=== PATIENT | female | born 1980 | race Caucasian/White ===

== ENCOUNTER 2016-07-14 21:00 | Emergency (ER) | payer MEDICAID ==
[~2016-07-14] VITALS: Ht 162.6 cm; Wt 77.5 kg
[~2016-07-14 21:00] MED LIST: PREN1TAB49; [UNRECOGNIZED DRUG - CODE]
[2016-07-14 21:04] VITALS: Ht 162.6 cm; Wt 77.5 kg
[2016-07-14 23:57] LABS: URINE BLOOD (Dip) POC Negative (NEGATIVE)
--- NOTE | 2016-07-15 01:18 | RADRPT ---
PROCEDURE: First trimester obstetrical ultrasound. CLINICAL INDICATION: , pelvic pain TECHNIQUE: Transabdominal and transvaginal pak scale and color Doppler ultrasound of the uterus . COMPARISON: None available FINDINGS: A single intrauterine gestation is present within the uterine fundus. No evidence of extrauterine gestation. Mean sac diameter: 1.38 cm [place]-rump length: 0.37 cm heart rate: Not detected No evidence of subchorionic hemorrhage. Normal size left ovary with intact blood flow. Residual follicle/cyst/of a corpus luteum of the rig ht ovary measuring 3.4 cm. Free fluid: None. IMPRESSION: Single probable early intrauterine gestation with an estimated gestational age of 6 weeks 0 days by ultrasound criteria. pole is identified though cardiac activity is not seen which may be due to early gestati onal status. Unless clinically contraindicated recommend correlation with quantitative beta HCG trend and repeate d pelvic ultrasound. RPTAT: AADD .Joaquin Olsen MD, MD Date Time Electronically viewed and signed by .Joaquin Olsen MD, on 07/15/2016 01:18 .B/
[2016-07-15] MEDS ORDERED: PRENAT PO (01:26)
[2016-07-15 02:08] VITALS: BP 119/61; PULSE 61; RESP 16; TEMP 98.2
--- NOTE | 2016-07-15 02:47 | ERD ---
ER Documentation Chief Complaint Date/Time DATE: 07/15/16 TIME: 02:45 Chief Complaint RLQ abd pain x 1 month HPI This is a 36-year-old female presenting to the emergency room complaining of bilateral pelvic pain for the past 2 weeks. Patient states the pain is mild to moderate in severity and is constant. Patient denies any vaginal bleeding, vaginal discharge, urinary symptoms, nausea, vomiting, diarrhea, constipation. Patient states that her last menstrual period was May. She states that she is irregular with her menstrual period. Patient states that she has been having this pelvic pain on and off for the past 2 years. She denies taking any medications for this ROS All systems reviewed and are negative except as per history of present illness. Medications Home Meds Active Scripts Multivit/Min/Fol Ac/Iron/Pren* ( S*) 1 Tab Tab, 1 TAB PO DAILY, #30 TAB Prov:AGUSTIN JON PA-C 07/15/16 Reported Medications Vits W-Ca,Fe,Fa(<1MG) () 1 Tab Tablet 11/21/09 Amoxicillin Trihydrate (Amoxicillin) 250 Mg Capsule 11/02/09 Allergies Allergies: Coded Allergies: No Known Allergy (Verified Allergy, Mild, 11/21/09) PMhx/Soc Medical and Surgical Hx: pt denies Medical Hx, pt denies Surgical Hx History of Surgery: No Hx Neurological Disorder: No Hx Respiratory Disorders: No Hx Cardiac Disorders: No Hx Psychiatric Problems: No Hx Miscellaneous Medical Probl: No Hx Alcohol Use: No Hx Substance Use: No Hx Tobacco Use: No Smoking Status: Never smoker Physical Exam Vitals Vital Signs Date Time Temp Pulse Resp B/P Pulse Ox O2 Delivery O2 Flow Rate FiO2 07/15/16 02:08 98.2 61 16 119/61 100 Room Air 07/14/16 21:04 97.8 69 20 127/69 100 Physical Exam GENERAL: well-developed/well-nourished, in no apparent distress, non-toxic appearing HENT: NC/AT, moist mucous membranes EYES: Conjunctiva normal NECK: Supple, no lymphadenopathy PULM: CTA bilaterally, no rales, rhonchi, or wheezing heard CV: Normal S1S2, RRR, good capillary refill GI: Soft, non-distended, mild tender to palpation bilateral pelvic region Normal bowel sounds, no masses or organomegaly felt on exam No gross peritonitis, no bruits Negative Rovsing, negative Klein, negative McBurney's point, Negative CVAT BACK: No masses EXT: No clubbing, cyanosis, or edema NEURO: Alert and Orientated SKIN: Intact, normal turgor PSYCH: Normal mood and mentation Results 24 hrs Laboratory Tests Test 07/14/16 23:57 Bedside Urine Blood Negative Bedside Urine Glucose (UA) Negative Bedside Urine Ketones (LAB) Negative Bedside Urine Leukocyte Esterase (L Negative Bedside Urine Nitrite (LAB) Negative Bedside Urine Protein (LAB) Negative Bedside Urine pH (LAB) 5.5 Procedures/MDM This is a 36-year-old female presenting to the emergency room complaining of pelvic pain for the past 2 weeks. On examination patient had an unremarkable abdominal exam, she just exhibited mild tenderness in the pelvic region. Patient has stable vital signs and appeared well. She is afebrile. A urine dipstick was done and was unremarkable for urinary tract infection. Patient did have a positive urine test that she was unaware about. I discussed with the patient. Patient states that she is able to follow-up with an TIN DIPPER. A pelvic ultrasound was done in the ED and radiologist stated: Single probable early intrauterine gestation with an estimated gestational age of 6 weeks 0 days by ultrasound criteria. pole is identified though cardiac activity is not seen which may be due to early gestational status. Unless clinically contraindicated recommend correlation with quantitative beta HCG trend and repeated pelvic ultrasound. I have a low suspicion for ectopic , molar , urinary tract infection, ovarian torsion, ruptured ovarian cyst. I have reassessed patient and she does not have significant pain. Patient states that she is able to follow-up with an TIN DIPPER. I discussed with her to return to the ER for any worsening signs or symptoms. She understands and agrees with this plan Departure Diagnosis: Primary Impression: Pelvic pain during Additional Impression: Pelvic pain Condition: Stable Patient Instructions: Pelvic Pain, Unknown Cause, , New Dx Referrals: [facility] [id number] [facility] [address] [place] [address] OFFICE FAX [address] [address] [address] [address] [place] [address] [address] BERRY, [facility] [address] [facility], [address], [place] [address] [facility] [address] [place] [address] [address] [address] [place] [address] [facility] [address] - ALTHEA PHIL[address]PE [address], [facility] [address] [address], [facility] [address] [facility], [facility] [address] [address] [facility]LL, [facility] [address] [place] [address] [facility] () Usted se jane hecho un examen mdico de control que le indica que no est en cristian condicin que requiera tratamiento urgente en el Departamento de Emergencia. Un estudio ms profundo y el tratamiento de saucedo condicin pueden esperar sin ningn riesgo hasta que usted sea atendida/o en el consultorio de saucedo mdico o cristian cl mitch. Es responsabilidad suya arreglar cristian scarlett para el seguimiento del micheline. MANEJO DE CONDICIONES NO URGENTES EN EL FUTURO 1) Si usted tiene un mdico de atencin primaria: Usted debera llamar a saucedo mdico de atencin primaria antes de venir al departamento de emergencia. Despus de las horas de consultorio, saucedo doctor o saucedo asociado/a est disponible por telfono. El mdico o enfermero de ja en el servicio telefnico puede asesorarle por beatriz medio para atender el problema, o micheline contrario se puede programar cristian scarlett. 2) Si usted no tiene un mdico de atencin primaria: Llame al mdico o clnica de referencia que aparece abajo lori las horas de consultorio para hacer cristian scarlett para que le vean. CLINICAS: [place] [address] [phone] [facility] [phone] [facility] [phone] [place] [address] [phone] [place] [address] [phone] [facility] [phone] [address] Additional Instructions: Visite a saucedo mdico maana para un EXAMEN.Regrese a estas instalaciones si no se mejora griffin esperbamos o griffin le dijimos. Regrese a estas instalaciones si no se mejora griffin esperbamos o griffin le dijimos. AGUSTIN JON PA-C Jul 15, 2016 02:47
== END 2016-07-15 02:09 | disposition home or self-care (01) ==
LOC: FTE 21:00
DX: O26.891 Other specified pregnancy related conditions, first trimester (principal); R10.2 Pelvic and perineal pain; Z3A.01 Less than 8 weeks gestation of pregnancy
CPT/HCPCS: 76830; 76856; 81003

== ENCOUNTER 2016-07-23 21:06 | Emergency (ER) | payer MEDICAID ==
[~2016-07-23] VITALS: Ht 152.4 cm; Wt 77.0 kg
[~2016-07-23 21:06] MED LIST changes: +PRENAT PO
[2016-07-23 21:10] VITALS: Ht 152.4 cm; Wt 77.0 kg
[2016-07-23 22:34] LABS: ADD UMIC YES; URINE BILIRUBIN (Dip) NEGATIVE (NEGATIVE); URINE BLOOD (Dip) 3+ (NEGATIVE); URINE COLOR RED (YELLOW); URINE GLUCOSE (Dip) NEGATIVE (NEGATIVE); URINE KETONES (Dip) NEGATIVE (NEGATIVE); URINE LEUKOCYTE ESTERASE (Dip) NEGATIVE (NEGATIVE); URINE NITRITE (Dip) NEGATIVE (NEGATIVE); URINE TOTAL PROTEIN (Dip) TRACE (NEGATIVE); URINE UROBILINOGEN (Dip) 0.2 E.U./dL (0.1-1.0)
[2016-07-23 22:45] LABS: BASOPHILS % 0.3 % (0.0-2.0); EOSINOPHILS # 0.3 10^3/ul (0.0-0.5); EOSINOPHILS % 2.3 % (0.0-7.0); HEMATOCRIT 38.7 % (37.0-47.0); HEMOGLOBIN 13.3 g/dl (12.0-16.0); LYMPHOCYTES # 2.7 10^3/ul (0.8-2.9); LYMPHOCYTES % 23.5 % (15.0-51.0); MEAN CORPUSCULAR HEMOGLOBIN 32.3 pg (29.0-33.0); MEAN CORPUSCULAR HGB CONC 34.2 g/dl (32.0-37.0); MEAN CORPUSCULAR VOLUME 94.3 fl (82.0-101.0); MEAN PLATELET VOLUME 9.8 fl (7.4-10.4); MONOCYTE # 0.9 10^3/ul (0.3-0.9); MONOCYTES % 8.2 % (0.0-11.0); NEUTROPHIL # 7.6 10^3/ul (1.6-7.5); NEUTROPHILS % 65.7 % (39.0-77.0); PLATELET COUNT 222 10^3/UL (140-440); RED CELL DISTRIBUTION WIDTH 13.6 % (11.5-14.5); UNCORRECTED WBC 11.6 10^3/ul (4.8-10.8); URINE RBCS >200 /HPF ([, 0]); WHITE BLOOD COUNT 11.6 10^3/ul (4.8-10.8)
[2016-07-23 22:46] LABS: BACTERIA,URINE OCCASIONAL; SQUAMOUS EPITHELIAL CELL,UR FEW
[2016-07-23 22:49] LABS: CONDITION 1
--- NOTE | 2016-07-23 23:24 | RADRPT ---
PROCEDURE: OB Ultrasound. CLINICAL INDICATION: Positive test. Vaginal bleeding. TECHNIQUE: Ultrasound of the pelvis was performed with transabdominal and transvaginal sonography in the axial and sagittal planes. COMPARISON: No prior study is available for comparison. FINDINGS: There is a single irregular intrauterine gestational sac. pole and yolk sac are not visualize d. Mean sac diameter is 1.28 cm. Menstrual age by ultrasound dates is 6 weeks 0 days. The right ovary measures 4.9 x 3.7 x 3.7 cm. The left ovary measures 3.4 x 1.0 x 1.7 cm. Color Doppler and pulsed Doppler sonography demonstrate normal flow to both ovaries. There is a benign-appearing right ovarian cyst measuring 3.5 cm in maximal diameter. There are no i nternal echoes or septations. The ovaries are otherwise normal. There is no other pelvic mass or free fluid. IMPRESSION: 1. Single irregular intrauterine gestational sac indicating probable failed as pole and yolk sac are not visualized. Follow-up ultrasound in 7 days advised. 2. Benign-appearing right ovarian cyst measuring 3.5 cm. Follow-up ultrasound in 6 weeks advised. 3. Otherwise unremarkable study. RPTAT: QQ .Altaf Gonsalves MD, Date Time Electronically viewed and signed by .Altaf Gonsalves MD, on 07/23/2016 23:24 .R/
--- NOTE | 2016-07-23 23:41 | ERD ---
ER Documentation Chief Complaint Date/Time DATE: 07/23/16 TIME: 23:36 Chief Complaint 15 wks preg & bleeding vaginally x 2 days w/ clots, consumed 2 pads x 6 hrs HPI This is a 36-year-old female stating that she is about 15 weeks presenting to the emergency department with LMP Nov complaining of vaginal bleeding for the past 2 days. Patient states that she started to have clots and she uses 2 pads every 6 hours. Patient denies any dizziness. She denies any pelvic pain at this point. She states that she has an appointment this Sunday with an [employer]. ROS All systems reviewed and are negative except as per history of present illness. Medications Home Meds Active Scripts Multivit/Min/Fol Ac/Iron/Pren* ( S*) 1 Tab Tab, 1 TAB PO DAILY, #30 TAB Prov:AGUSTIN JON PA-C 07/15/16 Reported Medications Vits W-Ca,Fe,Fa(<1MG) () 1 Tab Tablet 11/21/09 Amoxicillin Trihydrate (Amoxicillin) 250 Mg Capsule 11/02/09 Allergies Allergies: Coded Allergies: No Known Allergy (Verified Allergy, Mild, 11/21/09) PMhx/Soc History of Surgery: No Hx Neurological Disorder: No Hx Respiratory Disorders: No Hx Cardiac Disorders: No Hx Psychiatric Problems: No Hx Miscellaneous Medical Probl: No Hx Alcohol Use: No Hx Substance Use: No Hx Tobacco Use: No Smoking Status: Never smoker Physical Exam Vitals Vital Signs Date Time Temp Pulse Resp B/P Pulse Ox O2 Delivery O2 Flow Rate FiO2 07/23/16 21:10 98.8 64 18 128/61 100 Physical Exam GENERAL: well-developed/well-nourished, in no apparent distress, non-toxic appearing HENT: NC/AT, moist mucous membranes EYES: Conjunctiva normal NECK: Supple, no lymphadenopathy PULM: CTA bilaterally, no rales, rhonchi, or wheezing heard CV: Normal S1S2, RRR, good capillary refill GI: Soft, non-distended, mild tender to palpation pelvic Normal bowel sounds, no masses or organomegaly felt on exam No gross peritonitis, no bruits Negative Rovsing, negative Klein, negative McBurney's point, Negative CVAT BACK: No masses EXT: No clubbing, cyanosis, or edema NEURO: Alert and Orientated SKIN: Intact, normal turgor PSYCH: Normal mood and mentation Result Diagram: 07/23/16 2205 Results 24 hrs Laboratory Tests Test 07/23/16 22:05 Basophils # 0.010^3/ul Basophils % 0.3% Beta HCG, Quantitative 3975.4mIU/ml Eosinophils # 0.310^3/ul Eosinophils % 2.3% Hematocrit 38.7% Hemoglobin 13.3g/dl Lymphocytes # 2.710^3/ul Lymphocytes % 23.5% Mean Corpuscular Hemoglobin 32.3pg Mean Corpuscular Hemoglobin Concent 34.2g/dl Mean Corpuscular Volume 94.3fl Mean Platelet Volume 9.8fl Monocytes # 0.910^3/ul Monocytes % 8.2% Neutrophils # 7.610^3/ul Neutrophils % 65.7% Nucleated Red Blood Cells # 0.010^3/ul Nucleated Red Blood Cells % 0.0/100WBC Platelet Count 19696^3/UL Red Blood Count 4.1010^6/ul Red Cell Distribution Width 13.6% Urine Bacteria OCCASIONAL Urine Bilirubin NEGATIVE Urine Clarity SLIGHTLY CLOUDY Urine Color RED Urine Glucose NEGATIVE% Urine Hemoglobin 3+ Urine Ketones NEGATIVE Urine Leukocyte Esterase NEGATIVE Urine Microscopic RBC >200/HPF Urine Microscopic WBC 0-2/HPF Urine Nitrite NEGATIVE Urine Specific [place] 1.015 Urine Squamous Epithelial Cells FEW Urine Total Protein TRACE Urine Urobilinogen 0.2 E.U./dL Urine pH 7.0 White Blood Count 11.610^3/ul Procedures/MDM This is a 36-year-old female stating that she is about 15 weeks presenting to the emergency department with LMP May 27 complaining of vaginal bleeding for the past 2 days, Patient states that she started to have clots and she uses 2 pads every 6 hours. I reviewed patient's past chart. Patient was seen here on July 15 in which she found out she was that day. This is likely due to a failed . There was no evidence of ectopic , molar , anemia. Urinalysis did not show any evidence of a urinary tract infection. Lab work was done, patient had mildly elevated white blood cell count might likely due to stress reaction. She did not have any evidence of anemia. Beta hC OB ultrasound: 1. Single irregular intrauterine gestational sac indicating probable failed as pole and yolk sac are not visualized. Follow-up ultrasound in 7 days advised. 2. Benign-appearing right ovarian cyst measuring 3.5 cm. Follow-up ultrasound in 6 weeks advised. 3. Otherwise unremarkable study. I have discussed with patient that she should still continue to see her [employer] this Sunday and likely she will will need a repeat ultrasound and beta-hcg in 7 days . I have given patient precautions to return to the ER for any worsening signs or symptoms. Patient understands and agrees with this plan Departure Diagnosis: Primary Impression: Vaginal bleeding in patient at less than 20 weeks ges... Condition: Fair Patient Instructions: Possible Miscarriage (Threatened ) Referrals: NO PRIMARY,CARE PHYSICIAN (PCP) saucedo doctora Additional Instructions: El ultrasonido indica que puede denise fallado la pregancia y necesitar un ultrasonido de repeticin y un trabajo de laboratorio en 7 pink. Por favor, siga con saucedo obstetricia. Lleve todos los documentos consigo Regrese a estas instalaciones si no se mejora griffin esperbamos o griffin le dijimos. AGUSTIN JON PA-C Jul 23, 2016 23:40
[2016-07-23 23:44] VITALS: BP 116/70; PULSE 62; RESP 17; TEMP 98.9
== END 2016-07-23 23:45 | disposition home or self-care (01) ==
LOC: FTE 21:06
DX: O20.9 Hemorrhage in early pregnancy, unspecified (principal); R10.2 Pelvic and perineal pain; Z3A.15 15 weeks gestation of pregnancy
CPT/HCPCS: 36415; 76801; 76817; 81001; 84702; 85025; 86900; 86901; Z7502; 81003

== ENCOUNTER 2017-08-11 02:44 | Emergency (ER) | END 2017-08-11 07:54 | disposition home or self-care (01) ==

== ENCOUNTER 2017-12-05 08:28 | Emergency (ER) | END 2017-12-05 13:30 | disposition home or self-care (01) ==

== ENCOUNTER 2018-07-18 17:32 | Observation (INO) | payer MEDICAID ==
[~2018-07-18] VITALS: Ht 157.5 cm; Wt 91.0 kg
[~2018-07-18 17:32] MED LIST changes: +METF500T PO; -PREN1TAB49; -[UNRECOGNIZED DRUG - CODE]
[2018-07-18] MEDS ORDERED: LACTATED RINGER'S 1,000 ML IV PRN (18:53)
[2018-07-18] MEDS ORDERED: LACTATED RINGER'S 1,000 ML IV SCH (18:53)
[2018-07-18] MEDS ORDERED: DEXTROSE 5%-LR 1,000 ML IV PRN (19:00)
[2018-07-18] MEDS ORDERED: BUTORPHANOL 1 MG INJ IV PRN (19:00)
[2018-07-18] MEDS ORDERED: IBUPROFEN 600 MG TAB PO PRN (19:00)
[2018-07-18] MEDS ORDERED: METHYLERGONOVINE 0.2 MG INJ IM PRN (19:00)
[2018-07-18] MEDS ORDERED: MISOPROSTOL 200 MCG TAB PR PRN (19:00)
[2018-07-18] MEDS ORDERED: OXYTOCIN 30 UNITS/LR 500 ML IV PRN (19:00)
[2018-07-18] MEDS ORDERED: OXYTOCIN 30 UNITS/LR 500 ML IV SCH ×3 (19:00)
[2018-07-18] MEDS ORDERED: LIDOCAINE 1% (MPF) 30 ML INJ INJ PRN (19:00)
[2018-07-18] MEDS ORDERED: CARBOPROST 250 MCG INJ IM PRN (19:00)
[2018-07-18] MEDS ORDERED: MISOPROSTOL 50 MCG CAPSULE VAG ONE (19:00)
[2018-07-18] MEDS ORDERED: BUTORPHANOL 2 MG INJ IV PRN (19:00)
[2018-07-18 20:33] VITALS: Ht 157.5 cm; Wt 91.0 kg
== END 2018-07-18 21:30 | disposition left against medical advice (07) ==
LOC: L-D 17:32 → INTOOBSV 17:32 → L-D 18:18 → EDSTATUS 07-22 17:31
PROVIDERS: ADMIT Obstetrics & Gynecology; ATTEND Obstetrics & Gynecology
DX: O09.523 Supervision of elderly multigravida, third trimester (principal); Z3A.39 39 weeks gestation of pregnancy; Z53.21 Procedure and treatment not carried out due to patient leaving prior to being seen by health care provider
CPT/HCPCS: 76815; J7120; Z7500; 99217; G0378

== ENCOUNTER 2018-07-21 11:14 | Inpatient (IN) | payer MEDICAID ==
[~2018-07-21] VITALS: Ht 157.5 cm; Wt 91.0 kg
[2018-07-21 12:11] VITALS: BP 125/78; PULSE 72; RESP 20; Ht 157.5 cm; Wt 91.0 kg
--- NOTE | 2018-07-21 12:51 | TRIAGE ---
OB Triage Datetime Report Generated by CPN: 07/21/2018 12:51 Datetime: 07/21/2018 12:14 Maternal Assessment Level of Consciousness: Fully Conscious DTR's/Clonus: DTRs 2+; No Clonus Headache: Denies Blurred Vision: No Respiratory Effort: Unlabored; Regular Rhythm; Equal Expansion Breath Sounds, Left: Clear and Equal Breath Sounds, Right: Clear and Equal Nausea/Vomiting: Denies RUQ Epigastric Pain: Denies Facial Edema: None Temperature Route: Axillary Fall Risk Assessment History of Falling: (0) No Secondary Diagnosis: (0) No Ambulatory Aid: (0) Bedrest/Nurse Assist IV Therapy: (0) No Gait: (0) Normal/Bedrest/Immobile Mental Status: (0) Oriented to Own Ability Fall Score: 0 Fall Risk Score Definition: No Risk: No action required Datetime: 07/21/2018 12:01 Maternal Assessment Level of Consciousness: Fully Conscious DTR's/Clonus: DTRs 2+ Headache: Denies Blurred Vision: No Nausea/Vomiting: Denies RUQ Epigastric Pain: Denies Facial Edema: None Labor Evaluation Frequency: irreg Monitor Mode: External Quality: Mild Pattern: Normal: <= 5 Contractions in 10 Minutes Resting Tone [place]: Relaxed Heart Rate FHR Baseline Rate: 150 Monitor Mode: External US FHR Baseline Changes: No Baseline Change Variability: Moderate 6-25 bpm Accelerations: 15X15 Decelerations: None Category: Category I Pain Assessment Pain Scale: 6 Pain Presence: Intermittent Pain Type: Cramping Pain Location: Abdomen Vaginal Exam Dilatation (cms): 1.0 Effacement (%): 0 Station: -3 Exam By: renny rock Membrane Status: Intact Vaginal Bleeding: None Cervix, Consistency: Soft Cervix, Position: Posterior Datetime: 07/21/2018 11:10 Time of Arrival: 07/21/2018 11:10 EGA: 39.6 Arrived By: Ambulatory Arrived From: Home Chief Complaint: decreased movement Movement: Decreased Contractions: Irregular Vaginal Bleeding: None Patient Complaints: Other Provider Notified: bob Initial Plan: efm,call dr rojas Datetime: 07/18/2018 21:15 Comments: patient disconnected from external monitoring and up dressing Datetime: 07/18/2018 21:00 Labor Evaluation Frequency: x3 Monitor Mode: External Pattern: Normal: <= 5 Contractions in 10 Minutes Heart Rate FHR Baseline Rate: 135 Monitor Mode: External US FHR Baseline Changes: No Baseline Change Variability: Moderate 6-25 bpm Accelerations: 15X15 Category: Category I Datetime: 07/18/2018 20:00 Labor Evaluation Frequency: occasional Monitor Mode: External Pattern: Normal: <= 5 Contractions in 10 Minutes Heart Rate FHR Baseline Rate: 135 Monitor Mode: External US FHR Baseline Changes: No Baseline Change Variability: Moderate 6-25 bpm Datetime: 07/18/2018 19:47 Stage of : Labor Datetime: 07/18/2018 19:27 Assessment Type: Admission Assessment Vaginal Bleeding: None Maternal Assessment Level of Consciousness: Fully Conscious Headache: Denies Blurred Vision: No Respiratory Effort: Unlabored; Regular Rhythm; Equal Expansion Nausea/Vomiting: Denies RUQ Epigastric Pain: Denies Facial Edema: None Fall Risk Assessment History of Falling: (0) No Secondary Diagnosis: (0) No Ambulatory Aid: (0) Bedrest/Nurse Assist IV Therapy: (0) No Gait: (0) Normal/Bedrest/Immobile Mental Status: (0) Oriented to Own Ability Fall Score: 0 Fall Risk Score Definition: No Risk: No action required Datetime: 07/18/2018 19:26 Vaginal Bleeding: None Maternal Assessment Level of Consciousness: Fully Conscious Headache: Denies Blurred Vision: No Respiratory Effort: Unlabored; Regular Rhythm; Equal Expansion Nausea/Vomiting: Denies RUQ Epigastric Pain: Denies Facial Edema: None Fall Risk Assessment History of Falling: (0) No Secondary Diagnosis: (0) No Ambulatory Aid: (0) Bedrest/Nurse Assist Gait: (0) Normal/Bedrest/Immobile Mental Status: (0) Oriented to Own Ability Datetime: 07/18/2018 19:25 Time of Arrival: 07/18/2018 18:47 EGA: 39.3 Arrived By: Ambulatory Arrived From: Home Datetime: 07/07/2018 08:45 Stage of : OB Triage Maternal Assessment Level of Consciousness: Fully Conscious Labor Evaluation Frequency: OCCASIONAL Monitor Mode: External Duration (sec)2399: 60-140 Quality: Mild Resting Tone [place]: Relaxed Heart Rate FHR Baseline Rate: 145 Monitor Mode: External US Variability: Moderate 6-25 bpm Accelerations: 15X15 Decelerations: None Category: Category I Pain Assessment Pain Scale: 0 Pain Goal: 3 Membrane Status: Intact Vaginal Bleeding: None Datetime: 07/07/2018 07:48 Fall Score: 0 Fall Risk Score Definition: No Risk: No action required Datetime: 07/07/2018 07:47 EGA: 37.6
--- NOTE | 2018-07-21 12:58 | PREOPHP ---
DATE OF ADMISSION: 07/21/2018 HISTORY OF PRESENT ILLNESS: Ms. Aide Mora is a 38-year-old 4, para 2, EDC 07/22 intrauterine at 39 weeks and 6 days gestational age, presented to triage complaining of uterine contractions with decreased movement since last night. She currently is a GDM A2. She denies any vaginal discharge or bleeding. Her care took place at [facility]. MEDICAL HISTORY: GDM A2. MEDICATIONS: 1. vitamins. 2. Metformin. PAST SURGICAL HISTORY: None. OBSTETRIC HISTORY: x2 vaginal deliveries, x1 missed AB. GYNECOLOGIC HISTORY: 12, regular 3 to 4 days. Denies any sexually transmitted disease, sexually act akbar with 1 partner. SOCIAL HISTORY: Denies any smoking, drugs or alcohol. FAMILY HISTORY: None. REVIEW OF SYSTEMS: All within normal except history of present illness. PHYSICAL EXAMINATION: HEENT: Within normal. LUNGS: CTA bilateral. CARDIOVASCULAR: S1, S2, regular rhythm. ABDOMEN: Gravid, nontender. Negative CVA bilateral. EXTREMITIES: No calf tenderness. PELVIC: Vaginal exam short and closed. heart tracing category 1. Tea regular contractions. Estimated weight as of 07/18/2018, approximately 3700 grams. ASSESSMENT: Intrauterine at 39 weeks and 6 days gestational age, advanced maternal age. G DM A2 decreased movement. Suspect early labor. PLAN: Admit patient for Pitocin induction/augmentation. Risks, benefits and alternatives explained, including but not limited to increased risk of shoulder dystocia. Dictated By: OTIS ROBLEDO/AAMIR Conf#: [id number] DID#: [id number]
[2018-07-21] MEDS ORDERED: OXYTOCIN 30 UNITS/LR 500 ML IV PRN (14:00)
[2018-07-21] MEDS ORDERED: IBUPROFEN 600 MG TAB PO PRN (14:00)
[2018-07-21] MEDS ORDERED: LIDOCAINE 1% (MPF) 30 ML INJ INJ PRN (14:00)
[2018-07-21] MEDS ORDERED: OXYTOCIN 30 UNITS/LR 500 ML IV SCH ×3 (14:00)
[2018-07-21] MEDS ORDERED: METHYLERGONOVINE 0.2 MG INJ IM PRN (14:00)
[2018-07-21] MEDS ORDERED: MISOPROSTOL 200 MCG TAB PR PRN (14:00)
[2018-07-21] MEDS ORDERED: CARBOPROST 250 MCG INJ IM PRN (14:00)
[2018-07-21] MEDS ORDERED: BUTORPHANOL 1 MG INJ IV PRN (14:00)
[2018-07-21] MEDS: LACTATED RINGER'S 1,000 ML IV SCH ×2 (14:44→21:29)
[2018-07-21] MEDS: MISOPROSTOL 50 MCG CAPSULE PO SCH (21:28)
[2018-07-22] MEDS: MISOPROSTOL 50 MCG CAPSULE PO SCH ×3 (01:33→09:37)
[2018-07-22] MEDS ORDERED: MINERAL OIL LIGHT 10 ML VIAL TOP ONE (03:00)
[2018-07-22] MEDS: LACTATED RINGER'S 1,000 ML IV SCH ×2 (05:05→13:02)
[2018-07-22] MEDS ORDERED: OXYTOCIN 30 UNITS/LR 500 ML BAG IV ONE (07:00)
--- NOTE | 2018-07-22 09:05 | QN ---
Documentation Comment progress note patient seen and evaluated no complaints vs stable afebrile ab gravid nt extremity no edema no calf tenderness fhr cat 1 toco irregular Intrauterine at 40 wks gestational age, advanced maternal age. GDM A2 decreased movement. currently on cytotec for cervical ripening p/ continue present management OTIS HERRERA MD Jul 22, 2018 09:05
[2018-07-22] MEDS: BUTORPHANOL 2 MG INJ IV PRN ×2 (11:01→13:03)
[2018-07-22] MEDS ORDERED: DEXTROSE 5%-LR 1,000 ML IV SCH (13:05)
[2018-07-22] MEDS ORDERED: MINERAL OIL LIGHT 10 ML VIAL ONE (13:25)
[2018-07-22] MEDS ORDERED: CEFAZOLIN 2 GM/50 ML (PMX) 50 ML IVPB SCH (14:30)
[2018-07-22] MEDS ORDERED: OXYTOCIN 10 UNIT INJ ONE (14:32)
[2018-07-22] MEDS ORDERED: FENTAnyl 50 MCG/ML VIAL ONE (14:32)
--- NOTE | 2018-07-22 14:39 | PREAC ---
Date/Time of Note Date/Time of Note DATE: 07/22/18 TIME: 14:37 Anesthesia Eval and Record Evaluation Time Pre-Procedure Interview DATE: 07/22/18 TIME: 14:15 Age 38 Sex female NPO: 8 hrs Preoperative diagnosis Distress Planned procedure Emergency Past Medical History Past Medical History: Includes : : (4), Para: (2), Gestational age: (40) Surgery & Anesthesia Issues No known issue Meds Anticoagulation: No Beta Kate within 24 hr: No Reason Beta Kate not given: Pt. not on B-Kate Active Scripts Multivit/Min/Fol Ac/Iron/Pren* ( S*) 1 Tab Tab, 1 TAB PO DAILY, #30 TAB Prov:AGUSTIN JON PA-C 07/15/16 Reported Medications Metformin Hcl (Glucophage) 500 Mg Tablet, 500 MG PO WITH DINNER, #30 TAB 07/07/18 Current Medications Lactated Ringer's 1,000 ml @ 125 mls/hr Q8H IV Last administered on 07/22/18at 13:02; Admin Dose 125 MLS/HR; Start 07/21/18 at 14:00 Butorphanol Tartrate (Stadol) 1 mg Q2H PRN IV PAIN; Start 07/21/18 at 14:00 Butorphanol Tartrate (Stadol) 2 mg Q2H PRN IV PAIN Last administered on 07/22/18at 13:03; Admin Dose 2 MG; Start 07/21/18 at 14:00 Lidocaine (Xylocaine 1% (Mpf)) 30 ml ONCE PRN INJ EPISIOTOMY; Start 07/21/18 at 14:00 Oxytocin/Lactated Ringer's 500 ml @ 500 mls/hr ONCE POST IV ; Start at 14:00 Oxytocin/Lactated Ringer's 500 ml @ 125 mls/hr POST IV ; Start 07/21/18 at 14:00 Ibuprofen (Motrin) 600 mg ONCE PRN PO PAIN LEVEL 1-5; Start 07/21/18 at 14:00 Oxytocin/Lactated Ringer's 500 ml @ 0 mls/hr ONCE PRN IV VAGINAL BLEEDING; Start 07/21/18 at 14:00 Methylergonovine Maleate (Methergine) 0.2 mg ONCE PRN IM VAGINAL BLEEDING; Start 07/21/18 at 14:00 Carboprost Tromethamine (Hemabate) 250 mcg ONCE PRN IM VAGINAL BLEEDING; Start 07/21/18 at 14:00 Misoprostol (Cytotec) 1,000 mcg ONCE PRN TX VAGINAL BLEEDING; Start 07/21/18 at 14:00 Misoprostol (Cytotec 50 Mcg Capsule) 50 mcg Q4 PO Last administered on 07/22/18at 09:37; Admin Dose 50 MCG; Start 07/21/18 at 21:00 Dextrose/Lactated Ringer's 1,000 ml @ 125 mls/hr Q8H IV ; Start 07/22/18 at 13:05 Cefazolin Sodium/ Dextrose 50 ml @ 100 mls/hr ONCE IVPB ; Start 07/22/18 at 14:30 Meds reviewed: Yes Allergies Coded Allergies: No Known Allergy (Verified , 12/05/17) Allergies Reviewed: Yes Labs/Studies Labs Reviewed: Reviewed by anesthesiologist Result Diagram: 07/21/18 1408 test: Positive Studies: ECG (n/a), CXR (n/a) Pre-procedure Exam Last vitals Vital Signs Date Temp Pulse Resp B/P (MAP) Pulse Ox O2 O2 Flow FiO2 Time Delivery Rate 07/21/18 98.4 72 20 125/78 Room Air 12:11 (94) Airway: Adequate mouth opening, Adequate thyromental dist Mallampati: Mallampati II Teeth: Normal Lung: Normal Heart: Normal ASA Physical Status ASA physical status: 2 Emergency: E Planned Anesthetic General/MAC: ETT Neuraxial: Spinal Planned Pain Management Sub-arachniod narcotics, Parenteral pain med Pre-operative Attestations Prior to commencing anesthesia and surgery, the patient was re-evaluated, there was verification of: *The patient's identity *The results of appropriate recent lab work and preoperative vital signs *The above evaluation not changing prior to induction *Anesthetic plan, risk benefits, alternative and complications discussed with patient/family; questions answered; patient/family understands, accepts and wishes to proceed. MATILDE MCKEON MD Jul 22, 2018 14:39
[2018-07-22] MEDS ORDERED: PROPOFOL 20 ML ONE (14:43)
[2018-07-22] MEDS ORDERED: ROCURONIUM 50 MG INJ ONE (14:43)
[2018-07-22] MEDS ORDERED: SUCCINYLCHOLINE CHLORIDE 100 MG/5 ML SYG IV ONE (14:43)
[2018-07-22] MEDS ORDERED: ONDANSETRON 4 MG INJ ONE (14:44)
[2018-07-22] MEDS ORDERED: KETOROLAC 30 MG INJ ONE (14:44)
[2018-07-22] MEDS ORDERED: DEXAMETHASONE 4 MG/ML 1 ML INJ ONE (14:44)
[2018-07-22] MEDS ORDERED: METOCLOPRAMIDE 10 MG INJ ONE (14:44)
[2018-07-22] MEDS ORDERED: ROPIVACAINE 0.5 % 30 ML VIAL ONE (14:48)
[2018-07-22] MEDS ORDERED: METOCLOPRAMIDE 10 MG INJ IV PRN ×2 (15:00→19:00)
[2018-07-22] MEDS ORDERED: HYDROmorphONE 1 MG/5 ML IV SYRINGE IV PRN ×6 (15:00→19:00)
[2018-07-22] MEDS ORDERED: OXYCODONE/ACETAMINOPHEN (5/325) TAB PO PRN ×5 (15:00→19:00)
[2018-07-22] MEDS ORDERED: DIPHENHYDRAMINE 50 MG INJ IV PRN ×2 (15:00→19:00)
[2018-07-22] MEDS ORDERED: ONDANSETRON 4 MG INJ IV PRN ×2 (15:00→19:00)
[2018-07-22] MEDS ORDERED: FENTAnyl 50 MCG/ML VIAL IV PRN ×6 (15:00→19:00)
[2018-07-22] MEDS ORDERED: MEPERIDINE 25 MG INJ IV PRN ×2 (15:00→19:00)
[2018-07-22] MEDS ORDERED: OXYTOCIN 30 UNITS/LR 500 ML IV SCH (15:06)
--- NOTE | 2018-07-22 15:06 | OPPN ---
Date/Time of Note Date/Time of Note DATE: 07/22/18 TIME: 15:03 Operative Report Planned Procedure Procedure date Jul 22, 2018 Procedure(s) primary low transverse CD Performed by see signature line Crabber: SIMRAN ROLLE M.D. 2nd Crabber none Anesthesiologist: MATILDE MCKEON MD Pre-procedure diagnosis iup at term, in labor, gdma2, distress, failed vacuum (patient give oral consent) [id number] Anesthesia Type: Xvrvq9k general Post-Procedure Post-procedure diagnosis same Findings a viable male 8/9 weight 4,270 grams, normal uterus tubes and ovaries Estimated Blood Loss: 500 - 600 mls (600) Specimen(s) none Grafts/Implant(s) none Complication(s) none OTIS HERRERA MD Jul 22, 2018 15:06
[2018-07-22] MEDS ORDERED: METHYLERGONOVINE 0.2 MG INJ IM PRN (15:30)
[2018-07-22] MEDS ORDERED: NACL 0.9% 3 ML SYG IV SCH (15:30)
[2018-07-22] MEDS ORDERED: MISOPROSTOL 200 MCG TAB PR PRN (15:30)
[2018-07-22] MEDS ORDERED: OXYTOCIN 30 UNITS/LR 500 ML IV PRN (15:30)
[2018-07-22] MEDS ORDERED: CARBOPROST 250 MCG INJ IM PRN (15:30)
[2018-07-22] MEDS ORDERED: LANOLIN HPA 1 PKT TOP PRN (15:30)
[2018-07-22] MEDS: CEFAZOLIN 2 GM/50 ML (PMX) 50 ML IVPB SCH ×2 (15:54→23:53)
[2018-07-22 18:00] VITALS: BP 120/57; PULSE 66; RESP 19
[2018-07-22] MEDS: IBUPROFEN 600 MG TAB PO SCH (18:00)
--- NOTE | 2018-07-22 18:21 | PAC ---
Date/Time of Note Date/Time of Note DATE: 07/22/18 TIME: 18:21 Post-Anesthesia Notes Post-Anesthesia Note Last documented vital signs Vital Signs Date Temp Pulse Resp B/P (MAP) Pulse Ox O2 O2 Flow FiO2 Time Delivery Rate 07/21/18 98.4 72 20 125/78 98 Room Air 18:11 (94) Activity: WNL Respiratory function: WNL Cardiovascular function: WNL Mental status: Baseline Pain reasonably controlled: Yes Hydration appropriate: Yes Nausea/Vomiting absent: Yes MATILDE MCKEON MD Jul 22, 2018 18:21
[2018-07-22 18:30] VITALS: BP 115/68; PULSE 68; RESP 18
[2018-07-22] MEDS ORDERED: EPHEDrine SULFATE 50 MG/5 ML SYG IV PRN (19:00)
[2018-07-22] MEDS ORDERED: KETOROLAC 30 MG INJ IV PRN (19:00)
[2018-07-22 20:00] VITALS: BP 115/72; PULSE 66; RESP 18
[2018-07-23] VITALS: BP 99/84; PULSE 71
[2018-07-23] MEDS ORDERED: HYDROmorphONE 0.5 MG/0.5 ML SYG ONE (00:44)
[2018-07-23] MEDS: HYDROmorphONE 0.5 MG/0.5 ML SYG IV PRN ×2 (00:56→08:23)
[2018-07-23 03:50] VITALS: BP 97/60; PULSE 70; RESP 18
[2018-07-23] MEDS: KETOROLAC 30 MG INJ IV PRN ×2 (05:20→11:51)
[2018-07-23] MEDS: LACTATED RINGER'S 1,000 ML IV SCH (05:20)
[2018-07-23] MEDS: CEFAZOLIN 2 GM/50 ML (PMX) 50 ML IVPB SCH (06:58)
[2018-07-23 08:00] VITALS: BP 98/56; PULSE 71; RESP 17
--- NOTE | 2018-07-23 09:54 | NSTRPT ---
NST Information Datetime Report Generated by CPN: 07/23/2018 09:54 Datetime: 07/19/2018 09:30 NST Information EGA: 39.4 NST Duration (Min): 39 Datetime: 07/17/2018 11:07 NST Information EGA: 39.2 NST Duration (Min): 27 Electronically Signed By E-Signature: with User ID: [id number] Datetime: 07/12/2018 10:32 NST Information EGA: 38.4 NST Duration (Min): 22 Datetime: 07/10/2018 10:51 NST Information EGA: 38.2 NST Duration (Min): 26 Datetime: 07/05/2018 09:58 NST Information EGA: 37.4 NST Duration (Min): 93 Datetime: 07/03/2018 10:24 NST Information EGA: 37.2 NST Duration (Min): 45 Datetime: 06/28/2018 10:08 NST Information EGA: 36.4 NST Duration (Min): 24 Datetime: 06/25/2018 09:49 NST Information EGA: 36.1 NST Duration (Min): 34 Datetime: 06/21/2018 09:28 NST Information EGA: 35.4 NST Duration (Min): 44 Datetime: 06/18/2018 09:10 NST Information EGA: 35.1 NST Duration (Min): 21 Datetime: 06/14/2018 09:25 NST Information EGA: 34.4 NST Duration (Min): 33 Datetime: 06/11/2018 09:28 NST Information EGA: 34.1 Datetime: 06/11/2018 09:21 NST Duration (Min): 23
[2018-07-23 12:00] VITALS: BP 92/50; PULSE 73; RESP 17
--- NOTE | 2018-07-23 12:09 | OPR ---
DATE OF OPERATION: 07/22/2018 PREOPERATIVE DIAGNOSES: 1. Intrauterine at 40 weeks' gestational age, GDM A2. 2. Advanced maternal age, category 2/category 3 tracing/ distress. POSTOPERATIVE DIAGNOSIS: 1. Intrauterine at 40 weeks' gestational age, GDM A2. 2. Advanced maternal age, category 2/category 3 tracing/ distress. PROCEDURE: Failed vacuum assisted vaginal delivery. Primary low transverse delivery via Pfannenstiel incision. SURGEON: Marvin Herrera MD FOOD SAFETY FIELD SPECIALIST: Rio Guy MD ANESTHESIA: General. COMPLICATIONS: None. ESTIMATED BLOOD LOSS: 600 mL. FINDINGS: A viable male, 8 and 9 respectively at 1 and 5 minutes, weight 4270 grams. DESCRIPTION OF PROCEDURE: The patient was taken to the operating room where she was given the risks, benefits and alternatives for a vacuum assisted vaginal delivery. After verbal consent, a vacuum was applied to the head and there was a 3 pop-offs. At this point, the patient was consented for a primary stat . The patient was prepared and draped in a normal sterile fashion in a dorsal supine position with a leftward tilt. General anesthesia was obtained without difficulty.obtained. An incision was then made with a scalpel and carried to the underlying of the fascia. The fascia was incised in the midline and incision was extended laterally. The superior aspect of the fascia was grasped with curved clamps, elevated and the underlying rectus muscles dissected off bluntly. Attention was then turned to the inferior aspect of the incision which in similar fashion was grasped, tented up with curved clamps and the rectus muscles dissected off bluntly. The rectus muscles were then in midline. The peritoneum was then entered bluntly. The peritoneum was then extended superiorly and inferiorly with visualization of the bladder. At this point, the bladder blade was inserted and the lower uterine segment was incised in transverse fashion with the scalpel. The uterine incision was extended laterally. The bladder blade was removed and the infant's head was delivered atraumatically. The nose and mouth were suctioned and cord clamped and cut. The infant was handed off to the waiting fish bait picker/NICU team. The placenta was removed. The uterus extracted of all clots and debris. The uterine incision was repaired with 1-0 chromic in a running locked fashion. A second layer of same suture was used for imbrication obtaining excellent hemostasis. At this point, the uterus was returned to the abdomen. The gutters were cleared of all clots, and the peritoneum and rectus abdominis muscles were reapproximated with 3-0 Vicryl. The fascia was reapproximated with 0 Vicryl in running fashion. The subcutaneous tissue was reapproximated with 2-0 plain gut in a running fashion. The skin was closed with ronan. At this point, the patient was placed in a dorsal supine position and a first degree vaginal laceration was repaired with 2-0 chromic with good hemostasis noted. The patient tolerated the procedure well. All counts were correct. The patient was taken to the PACU, extubated and in stable condition. Dictated By: MARVIN ROBLEDO/AAMIR Conf#: [id number] DID#: [id number] CC: MARVIN HERRERA MD;*EndCC* MTDD
[2018-07-23] MEDS: OXYCODONE/ACETAMINOPHEN (5/325) TAB PO PRN ×2 (14:56→18:45)
--- NOTE | 2018-07-23 16:57 | QN ---
Documentation Comment progress note pod 1 patient seen and evaluated no complaints vs stable afebrile ab dressing clean dry no distention extremity no edema no calf tenderss a/ sp cd pod 1 stable afebrile p/ iron supplement repeat cbc in am encourage ambulation OTIS HERRERA MD Jul 23, 2018 16:57
[2018-07-23] MEDS: IBUPROFEN 600 MG TAB PO SCH ×3 (17:18→23:30)
[2018-07-23 20:15] VITALS: BP 97/59; PULSE 64; RESP 18
[2018-07-23] MEDS: FERROUS SULFATE (EC) 325 MG TAB PO SCH (20:56)
[2018-07-24 04:10] VITALS: BP 94/64; PULSE 61; RESP 18
[2018-07-24] MEDS: IBUPROFEN 600 MG TAB PO SCH ×3 (05:56→17:35)
[2018-07-24 08:00] VITALS: BP 99/58; PULSE 66; RESP 18
[2018-07-24] MEDS: FERROUS SULFATE (EC) 325 MG TAB PO SCH ×2 (09:14→20:16)
--- NOTE | 2018-07-24 12:41 | PD.PPDC ---
FIRE CODE INSPECTOR Discharge Instruction Condition [id number] Patient Condition: Nnntd0r Good Diet Cbqsf2Km Diet: Ubswr8v Resume Regular Diet Activity/Restrictions [id number] Activity: Rewsk3c Normal Activity May Shower Ulwiw6Ac Restrictions: Udfkj9m No Exercising No Lifting No Driving No Sexual Activity Nothing in the Vagina No [place] No Tampons, douche Follow-up Follow-up with Physician: 3, Day/Days Provider Information: to remove ronan Return to clinic for Crfvg3Sl GEAR FINISHER Instructions: Eidbi5g Fever greater than 101 Chills Worsening abdominal pain Excessive Vaginal Bleeding More than 2 pads per hour Unable to tolerate diet Qygjf5Db OB Instructions: Hsfqr7y Breast Tenderness Depression Blurried Vision Headache Eerqw3Eu Surgical Instructions: Jrwom9b Incisional Drainage Incisional Redness OTIS HERRERA MD Jul 24, 2018 12:41
[2018-07-24] MEDS: OXYCODONE/ACETAMINOPHEN (5/325) TAB PO PRN ×2 (13:07→20:49)
--- NOTE | 2018-07-24 15:19 | DS ---
DATE OF ADMISSION: 07/21/2018 DATE OF DISCHARGE: 07/25/2018 PRIMARY DIAGNOSIS: Intrauterine at 40 weeks' gestational age, GDM A2. Advanced maternal a ge, category 2/category 3 tracing/ distress. PROCEDURE: Failed vacuum assisted vaginal delivery with a primary low transverse delivery. CONDITION ON DISCHARGE: Stable. ACTIVITY: None per vagina, no lifting x6 weeks. DIET: Regular. MEDICATIONS ON DISCHARGE: 1. Motrin. 2. Iron. DISCHARGE SUMMARY: Ms. Aide Mora underwent a primary delivery on 07/22/2018. She had a viable male, 8 and 9 respectively at 1 and 5 minutes, weight 4270 grams. She had an uneventful postop day 1 and 2. She was discharged on postop day 3. Incision is clean, dry, intact. She is ambulating, tolerating diet, positive flatulence, positive bowel movement. She will follow u p in the clinic in 3 to 4 days to remove her ronan. Dictated By: OTIS ROBLEDO/AAMIR Conf#: [id number] DID#: [id number]
[2018-07-24 16:00] VITALS: BP 92/56; PULSE 62; RESP 18
[2018-07-24 20:00] VITALS: BP 109/69; PULSE 72; RESP 18
[2018-07-24] MEDS ORDERED: DIPHENHYDRAMINE 25 MG CAP PO ONE (23:00)
[2018-07-25] MEDS: IBUPROFEN 600 MG TAB PO SCH ×3 (00:49→11:29)
[2018-07-25] MEDS: OXYCODONE/ACETAMINOPHEN (5/325) TAB PO PRN ×3 (01:02→10:12)
[2018-07-25 04:00] VITALS: BP 100/58; PULSE 70
[2018-07-25 08:00] VITALS: BP 107/57; PULSE 87; RESP 18
[2018-07-25] MEDS: FERROUS SULFATE (EC) 325 MG TAB PO SCH (09:00)
[2018-07-25] MEDS ORDERED: MAGNESIUM HYDROXIDE 30ML CUP PO SCH (11:00)
[2018-07-25] MEDS ORDERED: SENNA TAB PO PRN (11:00)
[2018-07-26] MEDS ORDERED: IBUPROFEN 600 MG TAB PO SCH (01:00)
== END 2018-07-25 17:22 | disposition home or self-care (01) | DRG 788 ==
LOC: OBT 11:14 → L-D 11:14 → OBT 12:50 → L-D 12:50 → PP1 07-22 17:42
PROVIDERS: ADMIT Obstetrics & Gynecology; ATTEND Obstetrics & Gynecology
PROC: 10D00Z1 Extraction of Products of Conception, Low, Open Approach (ICD-10-PCS; principal; 2018-07-22 14:30)
DX: O24.429 Gestational diabetes mellitus in childbirth, unspecified control (principal); O76 Abnormality in fetal heart rate and rhythm complicating labor and delivery; O66.5 Attempted application of vacuum extractor and forceps; Z3A.39 39 weeks gestation of pregnancy; Z37.0 Single live birth
CPT/HCPCS: 82962; 85025; 85610; 85730; 86592; 86850; 86900; 86901; 87340; 99464; G0463; J0595; J0690; J1100; J1170; J1885; J2175; J2210; J2405; J2590; J2765; J2795; J3010; J7120; J7121